=== PATIENT | male | born 1940 | race Caucasian/White ===

== ENCOUNTER 2021-07-12 14:51 | Emergency (ER) | payer MEDICARE ==
[2021-07-12 16:25] LABS: HEMOGLOBIN 13.2 gm/dl (14.0-17.5); RED BLOOD COUNT 4.41 M/UL (4.20-5.50); WHITE BLOOD COUNT 4.5 K/UL (4.5-11.0)
[2021-07-12 16:51] LABS: BUN/CREATININE RATIO 21 (0-10)
== END 2021-07-12 18:52 | disposition home or self-care (01) ==
LOC: ER1 14:51
PROVIDERS: Preventive Medicine Occupational Medicine
DX: U07.1 COVID-19 (principal); S22.31XA Fracture of one rib, right side, initial encounter for closed fracture; I25.10 Atherosclerotic heart disease of native coronary artery without angina pectoris; I10 Essential (primary) hypertension; W19.XXXA Unspecified fall, initial encounter
CPT/HCPCS: 0240U; 70450; 71101; 80053; 83690; 85025; 86140; 96374; 99285; J1170

== ENCOUNTER 2021-07-18 16:58 | Emergency (ER) | payer MEDICARE ==
[2021-07-18 18:24] LABS: HEMOGLOBIN 13.5 gm/dl (14.0-17.5); RED BLOOD COUNT 4.43 M/UL (4.20-5.50); WHITE BLOOD COUNT 4.5 K/UL (4.5-11.0)
[2021-07-18] MEDS ORDERED: MEDROL4 MG PO (20:27)
[2021-07-18] MEDS ORDERED: AMOXICILLIN500 MG PO (20:27)
[2021-07-19 13:01] LABS: ACINETOBACTER BAUMANNII Not Detected (Negative); CANDIDA ALBICANS Not Detected (Negative); CANDIDA KRUSEI Not Detected (Negative); CANDIDA TROPICALIS Not Detected (Negative); ENTEROCOCCUS Not Detected (Negative); ESCHERICHIA COLI Not Detected (Negative); HAEMOPHILUS INFLUENZAE Not Detected (Negative); KLEBSIELLA OXYTOCA Not Detected (Negative); KLEBSIELLA PNEUMONIAE Not Detected (Negative); KPC-CARBAPENEM-RESISTANCE GENE Not Detected (Negative); PROTEUS Not Detected (Negative); PSEUDOMONAS AERUGINOSA Not Detected (Negative); SERRATIA MARCESANS Not Detected (Negative); STREP AGALACTIAE (GROUP B) Not Detected (Negative); STREP PYOGENES (GROUP A) Not Detected (Negative); STREPTOCOCCUS Not Detected (Negative); mecA (METHICILLIN RESIST GENE Not Detected (Negative); vanA/B (VANCOMYCIN RESIST GENE Not Detected (Negative)
[2021-07-19 15:06] LABS: STAPHYLOCOCCUS DETECTED (Negative); STAPHYLOCOCCUS AUREUS DETECTED (Negative)
== END 2021-07-18 21:08 | disposition home or self-care (01) ==
LOC: ER1 16:58
PROVIDERS: Emergency Medicine
DX: J01.90 Acute sinusitis, unspecified (principal); J44.9 Chronic obstructive pulmonary disease, unspecified; I10 Essential (primary) hypertension
CPT/HCPCS: 36600; 70450; 71045; 80053; 81001; 82803; 83605; 83880; 85025; 87040; 87077; 87150; 93005; 94664; 99285

== ENCOUNTER 2021-12-14 17:28 | Emergency (ER) | payer OTHER ==
[~2021-12-14 17:28] MED LIST: AMOXICILLIN500 MG PO; MEDROL4 MG PO
[2021-12-14 18:41] LABS: HEMOGLOBIN 13.4 gm/dl (14.0-17.5); RED BLOOD COUNT 4.5 M/UL (4.20-5.50); WHITE BLOOD COUNT 11.8 K/UL (4.5-11.0)
[2021-12-14 19:04] LABS: BUN/CREATININE RATIO 15 (0-10)
[2021-12-14] MEDS ORDERED: OMNICEF 300 MG300 MG PO (20:23)
== END 2021-12-14 21:30 | disposition home or self-care (01) ==
LOC: ER1 17:28
PROVIDERS: Family Medicine
DX: N39.0 Urinary tract infection, site not specified (principal); E87.1 Hypo-osmolality and hyponatremia; I48.91 Unspecified atrial fibrillation; R05.9 Cough, unspecified; E11.9 Type 2 diabetes mellitus without complications; J44.9 Chronic obstructive pulmonary disease, unspecified; I10 Essential (primary) hypertension; Z86.73 Personal history of transient ischemic attack (TIA), and cerebral infarction without residual deficits; Z86.16 Personal history of COVID-19; Z87.891 Personal history of nicotine dependence; Z20.822 Contact with and (suspected) exposure to COVID-19
CPT/HCPCS: 70450; 71045; 80053; 81001; 82550; 82553; 84439; 84443; 84484; 85025; 93005; 96374; 99284; J0696; U0002